=== PATIENT | male | born 1990 | race Two or more races ===

== ENCOUNTER 2022-11-11 19:30 | Emergency (ER) | payer SELFPAY ==
[~2022-11-11] VITALS: Ht 167.6 cm; Wt 163.3 kg
[2022-11-11] MEDS ORDERED: KETOROLAC TROMETH 60MG/2ML VIAL IM ONE (22:45)
[2022-11-11] MEDS ORDERED: IBUP800T26 PO (22:51)
[2022-11-11] MEDS ORDERED: AMOX-277 PO (22:51)
[2022-11-11 23:18] VITALS: BP 134/86
== END 2022-11-11 23:31 | disposition home or self-care (01) ==
LOC: ER 19:30
DX: H66.91 Otitis media, unspecified, right ear (principal); J03.90 Acute tonsillitis, unspecified; Z88.6 Allergy status to analgesic agent; Z20.822 Contact with and (suspected) exposure to COVID-19
CPT/HCPCS: 36415; 87070; 87426; 87804; 87880; 96372; 99283; J1885

== ENCOUNTER 2024-02-26 22:22 | Emergency (ER) | payer MEDICAID, OTHER ==
[~2024-02-26] VITALS: Ht 170.2 cm; Wt 168.0 kg
[~2024-02-26 22:22] MED LIST: AMOX875T4 PO; IBUP-1455 PO
[2024-02-26 22:34] VITALS: BP 134/87; PULSE 113; RESP 18; O2SAT 96
[2024-02-26] MEDS: ACETAMINOPHEN 325 MG TAB PO ONE (22:43)
[2024-02-27 01:53] LABS: Basophils # (auto) 0.1 10 ^3/uL (0-0.2); Basophils % (auto) 0.4 % (0.0-2.0); Eosinophils # (auto) 0 10 ^3/uL (0-0.8); Eosinophils % (auto) 0.2 % (0.0-7.0); Hematocrit 45.8 % (41.0-53.0); Hemoglobin 15.9 g/dL (13.5-17.5); Lymphocytes # (auto) 4.2 10 ^3/uL (0.4-5.4); Lymphocytes % (auto) 24.3 % (10.0-50.0); Mean Corpuscular Hemoglobin 33.7 pg (28.0-32.0); Mean Corpuscular Hgb Conc. 34.6 g/dL (32.0-36.0); Mean Corpuscular Volume 97.2 fL (80.0-100.0); Monocytes # (auto) 1.4 10 ^3/uL (0-1.3); Neutrophils # (auto) 11.7 10 ^3/uL (1.6-8.6); Neutrophils % (auto) 67.1 % (37.0-80.0); Red Blood Cells 4.71 10^6/uL (4.5-5.90); Red Cell Distribution Width 13.6 % (11.8-14.3); White Blood Cell 17.5 10^3/uL (4.4-10.8)
[2024-02-27] MEDS: DICYCLOMINE HCL (10MG/ML) 2 ML AMPULE IM ONE (02:00)
[2024-02-27 02:10] LABS: Urine Bacteria FEW /hpf (None Seen); Urine Blood Negative /uL (Negative); Urine Clarity Clear (Clear); Urine Color Yellow (Yellow); Urine Mucus FEW (None Seen); Urine Protein, UAD TRACE (Negative); Urine Urobilinogen Normal (Negative); Urine WBC 44 /hpf (0 - 3)
[2024-02-27 02:13] LABS: Chloride 107 mmol/L (98-107); Potassium 3.9 mmol/L (3.5-5.1); Sodium 136 mmol/L (136-145)
[2024-02-27 02:14] LABS: Anion Gap 8 (5-15); Calcium 9.6 mg/dL (8.7-10.4); Carbon Dioxide 21 mmol/L (20-30)
[2024-02-27 02:19] LABS: BUN/Creatinine Ratio 8.7 (10.0-20.0); Blood Urea Nitrogen 9 mg/dL (9-23); Glucose 107 mg/dL (74-106); Lipase 28 U/L (12-53)
[2024-02-27] MEDS ORDERED: ACET500T58 PO (02:50)
[2024-02-27] MEDS ORDERED: IBUP-1455 PO (02:50)
[2024-02-27] MEDS ORDERED: LEVO750T40 PO (02:50)
[2024-02-27] MEDS: levoFLOXacin 250 MG TAB PO ONE (02:55)
[2024-02-27 02:56] VITALS: TEMP 98.9
== END 2024-02-27 02:59 | disposition home or self-care (01) ==
LOC: ER 22:22
DX: N39.0 Urinary tract infection, site not specified (principal)
CPT/HCPCS: 36415; 74176; 80048; 81001; 83690; 85025; 96372; 99285; J0500